=== PATIENT | male | born 1985 | race Caucasian/White ===

== ENCOUNTER 2018-01-29 10:59 | Day surgery (SDC) | payer MEDICAID, OTHER ==
[~2018-01-29 10:59] MED LIST: LIDOCAINE 2% (SDV) 5 ML INJ
[2018-01-29] MEDS ORDERED: SOD CHLORIDE 0.9% 1,000 ML IV (12:00)
[2018-01-29] MEDS ORDERED: METOCLOPRAMIDE 10 MG INJ IV (12:30)
[2018-01-29] MEDS ORDERED: FENTAnyl 50 MCG/ML VIAL IV (12:30)
[2018-01-29] MEDS ORDERED: MEPERIDINE 25 MG INJ IV (12:30)
[2018-01-29] MEDS ORDERED: ALBUTEROL 0.083% (NEB) 2.5 MG/3 ML AMP HHN (12:30)
[2018-01-29] MEDS ORDERED: DIPHENHYDRAMINE 50 MG INJ IV (12:30)
[2018-01-29] MEDS ORDERED: ONDANSETRON 4 MG INJ IV (12:30)
[2018-01-29] MEDS ORDERED: HYDROmorphONE (0.2 MG/ML) 10ML SYG IV ×2 (12:30)
[2018-01-29] MEDS ORDERED: FENTAnyl 50 MCG/ML VIAL (13:06)
[2018-01-29] MEDS ORDERED: SUGAMMADEX SODIUM 200 MG/2 ML VIAL IV (13:07)
[2018-01-29] MEDS ORDERED: ROPIVACAINE 0.5 % 30 ML VIAL (13:07)
[2018-01-29] MEDS: CEFAZOLIN 2 GM/50 ML (PMX) 50 ML IVPB (13:28)
[2018-01-29] MEDS ORDERED: ROCURONIUM 50 MG INJ (13:31)
[2018-01-29] MEDS ORDERED: PROPOFOL 20 ML (13:31)
[2018-01-29] MEDS ORDERED: SUCCINYLCHOLINE CHLORIDE 100 MG/5 ML SYG IV (13:31)
[2018-01-29] MEDS ORDERED: CEFAZOLIN 1 GM INJ (13:31)
[2018-01-29] MEDS: POLYMYXIN/BACITRACIN 1L IRRIG IRR (13:36)
[2018-01-29] MEDS: HYDROmorphONE (0.2 MG/ML) 10ML SYG IV (15:04)
[2018-01-29] MEDS: FENTAnyl 50 MCG/ML VIAL IV (15:04)
[2018-01-29] MEDS: HYDROCODONE/APAP (5/325) TAB PO (15:40)
== END 2018-01-29 17:00 | disposition home or self-care (01) ==
LOC: SDS 10:59
DX: K40.30 Unilateral inguinal hernia, with obstruction, without gangrene, not specified as recurrent (principal)
CPT/HCPCS: 49507